=== PATIENT | female | born 1980 | race Caucasian/White ===

== ENCOUNTER 2017-02-23 14:42 | Inpatient (IN) ==
[2017-02-23] MEDS ORDERED: PEPCID PO PRN (19:45)
[2017-02-23] MEDS ORDERED: AMBIEN PO PRN (19:45)
[2017-02-23] MEDS ORDERED: KEFZOL 1 GM/D5W 1 GM/50 ML IVPB IV PRN (19:45)
[2017-02-23] MEDS ORDERED: PITOCIN 30 UNITS/LR 30 UNITS/500 ML IV.SOLN IV SCH (19:45)
[2017-02-23] MEDS ORDERED: PEPCID IV PRN (19:45)
[2017-02-23] MEDS ORDERED: STADOL IV PRN ×3 (19:45)
[2017-02-23] MEDS ORDERED: ZOFRAN IV PRN (19:45)
[2017-02-23] MEDS ORDERED: BRETHINE SUBQ PRN (19:45)
[2017-02-23] MEDS ORDERED: TYLENOL PO PRN (19:45)
[2017-02-23] MEDS ORDERED: LR 1,000 ML IV ONE (19:45)
[2017-02-23 21:03] LABS: MANUAL DIFF NEEDED? NO; URINE SOURCE VOIDED
[2017-02-23 21:05] LABS: BASO% 0.1 % (0.0-0.8); EOS# 0.04 X1000 (0.0-0.7); EOS% 0.3 % (0.0-10.0); HEMATOCRIT 36.3 % (37.0-47.0); HEMOGLOBIN 12.4 g/dL (12.0-16.0); IMM GRAN# 0.03 X1000 (0.0-0.04); IMM GRAN% 0.3 % (0.0-0.5); LYMPH% 21.6 % (20.5-51.1); MCH 32.1 PG (27-31); MCHC 34.2 g/dL (33-37); NEUT% 71.7 % (42.2-75.2); PLT 306 X1000 (130-400); RBC 3.86 XMIL (4.2-5.4)
[2017-02-23 21:13] LABS: BILIRUBIN URINE NEGATIVE (NEGATIVE); BLOOD URINE 4+ (NEGATIVE); COLOR YELLOW; GLUCOSE URINE NEGATIVE (NEGATIVE); LEUKOCYTES URINE 1+ (NEGATIVE); NITRITE URINE NEGATIVE (NEGATIVE); PH URINE 6.5; PROTEIN URINE 1+(30 mg/dL) mg/dL (NEGATIVE); SP GRAVITY URINE 1.025; UROBILINOGEN URINE NORMAL
[2017-02-23 21:15] LABS: UR AMPHETAMINES QUAL NONE DETECTED (NONE DETECT); UR BARBITUATES QUAL NONE DETECTED (NONE DETECT); UR BENZODIAZEPIN QUAL NONE DETECTED (NONE DETECT); UR CANNABINOIDS QUAL NONE DETECTED (NONE DETECT); UR COCAINE QUAL NONE DETECTED (NONE DETECT); UR MDMA QUAL NONE DETECTED (NONE DETECT); UR METHADONE QUAL NONE DETECTED (NONE DETECT); UR METHAMPHETAMINE QUAL NONE DETECTED (NONE DETECT); UR OPIATES QUAL NONE DETECTED (NONE DETECT); UR OXYCODONE QUAL NONE DETECTED (NONE DETECT); UR PCP QUAL NONE DETECTED (NONE DETECT); UR TCA QUAL NONE DETECTED (NONE DETECT)
[2017-02-23 21:21] LABS: CLARITY CLOUDY (CLEAR)
[2017-02-23] MEDS ORDERED: CYTOTEC PO ONE (23:00)
[2017-02-24] MEDS ORDERED: XYLOCAINE-MPF 1% INJ PRN ×2 (00:57→02:12)
[2017-02-24] MEDS ORDERED: MINERAL OIL PRN (00:57)
[2017-02-24] MEDS ORDERED: FENTANYL-BUPIV-NS 2 MCG-0.1% 200 ML EPIDURAL PRN (01:15)
[2017-02-24] MEDS ORDERED: MINERAL OIL PO PRN (02:12)
[2017-02-24] MEDS ORDERED: HYDROXYZINE IM PRN (02:12)
[2017-02-24] MEDS ORDERED: PITOCIN IM PRN (02:12)
[2017-02-24] MEDS ORDERED: NORCO-5 PO PRN (02:12)
[2017-02-24] MEDS ORDERED: PERI MEDS (DERMOPLAST/NUPERCAINAL/TUCKS) MISC PRN (02:12)
[2017-02-24] MEDS ORDERED: PITOCIN 30 UNITS/LR 30 UNITS/500 ML IV.SOLN IV ONE (02:12)
[2017-02-24] MEDS ORDERED: BOOSTRIX VACCINE IM ONE (02:12)
[2017-02-24] MEDS ORDERED: CYTOTEC PO PRN (02:12)
[2017-02-24] MEDS ORDERED: HYDROXYZINE PO PRN (02:12)
[2017-02-24] MEDS ORDERED: PITOCIN 20 UNITS/LR 20 UNITS/1,000 ML IV.SOLN IV SCH (02:12)
[2017-02-24] MEDS ORDERED: BENADRYL IV PRN (02:12)
[2017-02-24] MEDS ORDERED: NORCO-10 PO PRN (02:12)
[2017-02-24] MEDS ORDERED: AMBIEN PO PRN (02:12)
[2017-02-24] MEDS ORDERED: M-M-R II VACCINE SUBQ ONE (02:12)
[2017-02-24] MEDS ORDERED: BENADRYL PO PRN (02:12)
[2017-02-24] MEDS: PERCOCET-10 PO PRN ×2 (02:27→07:25)
[2017-02-24] MEDS: CYTOTEC PO SCH ×2 (02:37→09:04)
[2017-02-24] MEDS: MOTRIN PO PRN ×2 (07:25→16:25)
[2017-02-24] MEDS: PERCOCET-5 PO PRN (16:25)
[2017-02-24] MEDS: PERICOLACE PO SCH (20:35)
[2017-02-25] MEDS: MOTRIN PO PRN ×2 (02:23→14:03)
[2017-02-25] MEDS: PERCOCET-5 PO PRN ×2 (02:23→14:03)
[2017-02-25 05:51] LABS: MANUAL DIFF NEEDED? NO
[2017-02-25 05:59] LABS: BASO% 0.1 % (0.0-0.8); EOS# 0.05 X1000 (0.0-0.7); EOS% 0.4 % (0.0-10.0); HEMATOCRIT 32.8 % (37.0-47.0); HEMOGLOBIN 11.1 g/dL (12.0-16.0); IMM GRAN# 0.01 X1000 (0.0-0.04); IMM GRAN% 0.1 % (0.0-0.5); LYMPH# 2.37 X1000 (1.2-3.4); LYMPH% 17.2 % (20.5-51.1); MCH 32.6 PG (27-31); MCHC 33.8 g/dL (33-37); MCV 96.2 FL (81-99); MONO# 0.82 X1000 (0.11-0.59); MPV 9.8 FL (7.4-10.4); NEUT% 76.2 % (42.2-75.2); PLT 255 X1000 (130-400); RBC 3.41 XMIL (4.2-5.4)
[2017-02-25] MEDS ORDERED: EPIFOAM FOAM TOP PRN (13:55)
[2017-02-25] MEDS: PERICOLACE PO SCH (19:50)
[2017-02-26] MEDS: PERICOLACE PO SCH (02:02)
[2017-02-26] MEDS: PERCOCET-5 PO PRN (04:09)
[2017-02-26 07:42] VITALS: BP 112/70
== END 2017-02-26 12:35 | disposition home or self-care (01) ==
LOC: P.LD 19:42 → P.WC 02-24 19:33
PROVIDERS: ADMIT Obstetrics & Gynecology; ATTEND Obstetrics & Gynecology